=== PATIENT | male | born 1940 | race Caucasian/White ===

== ENCOUNTER 2017-12-01 22:00 | Emergency (ER) | payer MEDICARE, BC ==
--- NOTE | 2017-12-01 23:17 | EDM.PDOC ---
ED HPI GENERAL MEDICAL PROBLEM - General Chief Complaint: Genitourinary Problem Stated Complaint: CATHETER ISSUES Time Seen by Provider: 12/01/17 23:00 Source of Information: Reports: Patient, RN History Limitations: Reports: No Limitations - History of Present Illness INITIAL COMMENTS - FREE TEXT/NARRATIVE: 77 yo male here with a plugged renteria catheter. 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 He was sent home with a catheter. Initially he noted blood, this got heavier until eventually he started clotting and is now plugged. He does not yet have any discomfort. No fever. Onset: Today Onset Date: 12/01/17 Duration: Minutes: Location: Reports: Abdomen Quality: Reports: Other (no pain) Severity: Mild Improves with: Reports: None Worsens with: Reports: Other (time) Context: Reports: Other (bladder procedure early today at [place]) Associated Symptoms: Reports: No Other Symptoms Treatments EDGE STAINER: Reports: Urinary Catheter in Place - Related Data Allergies Allergy/AdvReac Type Severity Reaction Status Date / Time nabumetone [From Relafen] Allergy Hives Verified 12/01/17 22:35 oxycodone Allergy Hallucinati Verified 12/01/17 22:36 ons Home Meds: Home Meds Acetaminophen 1 - 2 tab PO Q6H PRN 12/01/17 [History] Albuterol [Proventil HFA] 2 puff INH Q6H PRN 12/01/17 [History] Aspirin [Adult Low Dose Aspirin EC] 81 mg PO DAILY 12/01/17 [History] Benzonatate [Tessalon Perle] 200 mg PO ASDIRECTED PRN 12/01/17 [History] Cetirizine [ZyrTEC] 10 mg PO DAILY 12/01/17 [History] Cholecalciferol (Vitamin D3) [Vitamin D3] 1,000 unit PO DAILY 12/01/17 [History] Fluticasone Propionate [Flonase Allergy Relief] 2 puff NS DAILY 12/01/17 [ History] Irbesartan 150 mg PO DAILY 12/01/17 [History] Lidocaine 2% [Lidocaine 2% Jelly] 1 applic TOP TID PRN 12/01/17 [History] Metoprolol Tartrate [Lopressor] 25 mg PO Q12HR 12/01/17 [History] Mometasone Furoate 200mcg [Asmanex HFA 200mcg] 1 puff IH DAILY 12/01/17 [History ] Rosuvastatin [Crestor] 10 mg PO DAILY 12/01/17 [History] Sulfamethoxazole/Trimethoprim [Bactrim Ds Tablet] 1 tab PO BID 12/01/17 [History ] Trospium [Sanctura] 20 mg PO BID PRN 12/01/17 [History] Past Medical History HEENT History: Reports: Impaired Vision Cardiovascular History: Reports: Hypertension, [place] Respiratory History: Reports: Asthma Genitourinary History: Reports: Other (See Below) Other Genitourinary History: bladder tumor turp on 12/01/17 Oncologic (Cancer) History: Reports: Basal Cell Carcinoma, Squamous Cell Carcinoma - Infectious Disease History Infectious Disease History: Reports: Chicken Pox - Past Surgical History Cardiovascular Surgical History: Reports: Coronary Artery Stent GI Surgical History: Reports: Colonoscopy Male Surgical History: Reports: TURBT-Transurethral Resection of Bladder Tumor Social & Family History - Family History Family Medical History: Noncontributory - Tobacco Use Smoking Status *Q: Never Smoker - Caffeine Use Caffeine Use: Reports: Coffee - Alcohol Use Days Per Week of Alcohol Use: 7 Number of Drinks Per Day: 2 Total Drinks Per Week: 14 - Recreational Drug Use Recreational Drug Use: No ED ROS GENERAL - Review of Systems Review Of Systems: See Below Constitutional: Reports: No Symptoms : Reports: Hematuria, Other (renteria now plugged) Musculoskeletal: Reports: No Symptoms Skin: Reports: No Symptoms ED EXAM, RENAL/ - Physical Exam Exam: See Below Exam Limited By: No Limitations General Appearance: Alert, WD/WN, No Apparent Distress GI/Abdominal: Normal Bowel Sounds, Soft, Non-Tender, No Distention (Male) Exam: Normal Inspection, Other (renteria plugged with a blood clot) Back Exam: No: CVA Tenderness (R), CVA Tenderness (L) Extremities: Normal Inspection, No Pedal Edema Neurological: Alert, Oriented, Normal Cognition Psychiatric: Normal Affect, Normal Mood Skin Exam: Warm, Dry, Intact, Normal Color, No Rash Course - Vital Signs Last Recorded V/S: Last Vital Signs Temp 35.6 C 12/01/17 22:47 Pulse 92 12/01/17 22:47 Resp 16 12/01/17 22:47 BP 124/74 12/01/17 22:47 Pulse Ox 97 12/01/17 22:47 - Orders/Labs/Meds Orders: Active Orders 24 hr Category Date Time Status Bladder Scan [RC] ONETIME Care 12/01/17 23:07 Active Departure - Departure Time of Disposition: 23:37 Disposition: Home, Self-Care 01 Condition: Fair Clinical Impression: Retention of urine - Discharge Information Referrals: PCP,None [Primary Care Provider] - - My Orders Last 24 Hours: My Active Orders 12/01/17 23:07 Bladder Scan [RC] ONETIME - Assessment/Plan Last 24 Hours: My Active Orders 12/01/17 23:07 Bladder Scan [RC] ONETIME
== END 2017-12-01 23:49 | disposition home or self-care (01) ==
LOC: JP.ED 22:00
DX: R33.9 Retention of urine, unspecified (principal); I10 Essential (primary) hypertension; I25.2 Old myocardial infarction; Z88.8 Allergy status to other drugs, medicaments and biological substances; Z79.899 Other long term (current) drug therapy; Z79.82 Long term (current) use of aspirin
CPT/HCPCS: 51798; 99283-25

== ENCOUNTER 2019-06-01 11:33 | Emergency (ER) | payer MEDICARE, BC ==
--- NOTE | 2019-06-01 13:15 | EDM.PDOC ---
ED HPI GENERAL MEDICAL PROBLEM - General Chief Complaint: Genitourinary Problem Stated Complaint: CANCER PATIENT BLADDER FROM [place] Time Seen by Provider: 06/01/19 13:04 Source of Information: Reports: Patient, Family, RN Notes Reviewed History Limitations: Reports: No Limitations - History of Present Illness INITIAL COMMENTS - FREE TEXT/NARRATIVE: 79-year-old gentleman presents to emergency department today complaint of burning with urination as well as urinary frequency and urgency, he states is been going on for the last couple days she does have a history of prostate cancer which is being treated for Lupron has had prostate biopsies in the past but no difficulty such as this he denies any fevers or back pain - Related Data Allergies Allergy/AdvReac Type Severity Reaction Status Date / Time nabumetone [From Relafen] Allergy Hives Verified 12/01/17 22:35 oxycodone Allergy Hallucinati Verified 12/01/17 22:36 ons Home Meds: Home Meds Acetaminophen 1 - 2 tab PO Q6H PRN 12/01/17 [History] Albuterol [Proventil HFA] 2 puff INH Q6H PRN 12/01/17 [History] Aspirin [Adult Low Dose Aspirin EC] 81 mg PO DAILY 12/01/17 [History] Benzonatate [Tessalon Perle] 200 mg PO ASDIRECTED PRN 12/01/17 [History] Cetirizine [ZyrTEC] 10 mg PO DAILY 12/01/17 [History] Cholecalciferol (Vitamin D3) [Vitamin D3] 1,000 unit PO DAILY 12/01/17 [History] Fluticasone Propionate [Flonase Allergy Relief] 2 puff NS DAILY 12/01/17 [ History] Lidocaine 2% [Lidocaine 2% Jelly] 1 applic TOP TID PRN 12/01/17 [History] Metoprolol Tartrate [Lopressor] 25 mg PO Q12HR 12/01/17 [History] Mometasone Furoate 200mcg [Asmanex HFA 200mcg] 1 puff IH DAILY 12/01/17 [History ] Rosuvastatin [Crestor] 10 mg PO DAILY 12/01/17 [History] Trospium [Sanctura] 20 mg PO BID PRN 12/01/17 [History] Bicalutamide [Casodex] 50 mg PO DAILY 06/01/19 [History] Leuprolide [Lupron Depot 4-Month] 30 mg IM ASDIRECTED 06/01/19 [History] Past Medical History HEENT History: Reports: Impaired Vision Cardiovascular History: Reports: CAD, Hypertension, [place] Respiratory History: Reports: Asthma Genitourinary History: Reports: Other (See Below) Other Genitourinary History: bladder tumor turp on 12/01/17 Oncologic (Cancer) History: Reports: Basal Cell Carcinoma, Bladder, Prostate, Squamous Cell Carcinoma - Infectious Disease History Infectious Disease History: Reports: Chicken Pox - Past Surgical History Cardiovascular Surgical History: Reports: Coronary Artery Stent GI Surgical History: Reports: Colonoscopy Male Surgical History: Reports: TURBT-Transurethral Resection of Bladder Tumor Social & Family History - Family History Family Medical History: Noncontributory - Tobacco Use Smoking Status *Q: Never Smoker - Caffeine Use Caffeine Use: Reports: Coffee ED ROS GENERAL - Review of Systems Review Of Systems: See Below Constitutional: Denies: Fever, Chills HEENT: Reports: No Symptoms Respiratory: Reports: No Symptoms Cardiovascular: Reports: No Symptoms GI/Abdominal: Reports: No Symptoms : Reports: Dysuria, Frequency, Urgency. Denies: Flank Pain ED EXAM, RENAL/ - Physical Exam Exam: See Below Exam Limited By: No Limitations General Appearance: Alert, WD/WN, No Apparent Distress Respiratory/Chest: No Respiratory Distress GI/Abdominal: Normal Bowel Sounds, Soft, Non-Tender Back Exam: Normal Inspection, Full Range of Motion. No: CVA Tenderness (R), CVA Tenderness (L) Course - Vital Signs Last Recorded V/S: Last Vital Signs Temp 96.3 F 06/01/19 12:21 Pulse 55 L 06/01/19 12:21 Resp 18 06/01/19 12:21 BP 125/72 06/01/19 12:21 Pulse Ox 98 06/01/19 12:21 - Orders/Labs/Meds Orders: Active Orders 24 hr Category Date Time Status CULTURE URINE [RM] Stat Lab 06/01/19 12:21 Received Labs: Laboratory Tests 06/01/19 Range/Units 12:21 Urine Color Yellow (YELLOW) Urine Appearance Clear (CLEAR) Urine pH 6.5 (5.0-8.0) Ur Specific [place] 1.020 (1.008-1.030) Urine Protein Negative (NEGATIVE) mg/dL Urine Glucose (UA) Negative (NEGATIVE) mg/dL Urine Ketones Negative (NEGATIVE) mg/dL Urine Occult Blood Moderate H (NEGATIVE) Urine Nitrite Negative (NEGATIVE) Urine Bilirubin Negative (NEGATIVE) Urine Urobilinogen 0.2 (0.2-1.0) EU/dL Ur Leukocyte Esterase Negative (NEGATIVE) Urine RBC 20-30 H (0-5) Urine WBC 0-5 (0-5) Ur Epithelial Cells Few Amorphous Sediment Not seen Urine Bacteria Few Urine Mucus Not seen Departure - Departure Time of Disposition: 13:14 Disposition: Home, Self-Care 01 Condition: Fair Clinical Impression: UTI, Urinary tract infectious disease - Discharge Information Instructions: Urine Culture and Sensitivity Testing, Urinary Tract Infection, Adult Referrals: PCP,None [Primary Care Provider] - Additional Instructions: Take full course of antibiotics, we will contact you with the culture results when they become available, please follow-up with your primary care upon return home if symptoms persist, call return to the emergency department with worsening of symptoms - My Orders Last 24 Hours: My Active Orders 06/01/19 12:21 CULTURE URINE [RM] Stat - Assessment/Plan Last 24 Hours: My Active Orders 06/01/19 12:21 CULTURE URINE [RM] Stat Plan: Assessment Acuity = acute Site and laterality = urinary tract infection Etiology = probable bacterial cause Manifestations = dysuria Location of injury = Home Lab values = WBC 10-20 consistent hematuria, WBCs are negative few bacteria Plan Given his history, he is traveling elected to treat empirically with Cipro 500 by mouth twice a day 7 days cultures will be available in 3-4 days we'll contact him with the results he'll follow up with his primary care upon return home This note was dictated using [employer] voice recognition software please call with any questions on syntax or grammar.
== END 2019-06-01 13:29 | disposition home or self-care (01) ==
LOC: JP.ED 11:33
DX: N39.0 Urinary tract infection, site not specified (principal); I10 Essential (primary) hypertension; I25.2 Old myocardial infarction; J45.909 Unspecified asthma, uncomplicated; Z85.46 Personal history of malignant neoplasm of prostate; Z88.8 Allergy status to other drugs, medicaments and biological substances; Z88.6 Allergy status to analgesic agent; Z79.82 Long term (current) use of aspirin; Z79.899 Other long term (current) drug therapy
CPT/HCPCS: 81001; 87086; 99283